=== PATIENT | female | born 1995 | race African-American/Black ===

== ENCOUNTER 2020-12-11 21:17 | Emergency (ER) | payer BC ==
[~2020-12-11] VITALS: Ht 162.6 cm; Wt 56.4 kg
[2020-12-11 22:21] LABS: CLARITY URINE CLEAR (CLEAR); COLOR URINE YELLOW (YELLOW); KETONES URINE 2+ (NEGATIVE); LEUKOCYTE ESTERASE URINE NEGATIVE (NEGATIVE); NITRITE URINE NEGATIVE (NEGATIVE); OCCULT BLOOD URINE NEGATIVE (NEGATIVE); PROTEIN URINE 1+ (NEGATIVE)
[2020-12-12] MEDS ORDERED: ACETAMINOPHEN 325MG TABLET PO ONE
[2020-12-12 00:36] LABS: BASOPHILS % 0.5 % (0.0-2.0); HEMATOCRIT. 37.3 % (36.0-48.0); HEMOGLOBIN. 12.1 g/dL (12.0-16.0); LYMPHOCYTES % 23.2 % (20.0-50.0); MEAN CORPUSCULAR HEMOGLOBIN 24.7 pg (28.0-32.0); MEAN CORPUSCULAR VOLUME 76.2 fL (81.0-99.0); MEAN PLATELET VOLUME 7.3 fl (7.4-10.4); MONOCYTES % 7.9 % (2.0-8.0); NEUTROPHILS % 68.4 % (40.0-76.0); PLATELET 302 x1000/uL (130-400); RED BLOOD CELL COUNT 4.89 mill/uL (4.2-5.4); RED CELL DISTRIBUTION WIDTH 15.5 % (11.6-14.6)
[2020-12-12 00:39] LABS: CHLORIDE 109 mEq/L (98-107)
[2020-12-12] MEDS ORDERED: IOHEXOL-300 100 ML BOTTLE ONE (00:56)
[2020-12-12] MEDS ORDERED: HYDROCODONE/ACETAMINOPHEN 5/325MG TABLET PO ONE (02:30)
[2020-12-12] MEDS ORDERED: ONDA4TAB5 MT (02:32)
[2020-12-12] MEDS ORDERED: OXYC-662 MT (02:32)
[2020-12-12 02:44] VITALS: BP 115/73
== END 2020-12-12 02:54 | disposition home or self-care (01) ==
LOC: ER 21:17
DX: R10.11 Right upper quadrant pain (principal); K76.89 Other specified diseases of liver; Z13.9 Encounter for screening, unspecified
CPT/HCPCS: 36415; 74177; 80053; 81003; 81025; 83690; 85025; 99285; Q9967